=== PATIENT | female | born 1935 | race Caucasian/White ===

== ENCOUNTER → 2017-02-25 | Outpatient (CLI) | payer OTHER ==
[~2017-02-25] MED LIST: REGADENOSON 0.4 MG/5 ML DISP.SYRIN. IV ONE
--- NOTE | 2017-02-25 13:05 | PCVCIMAG ---
APPROVED REPORT Study performed: 02/25/2017 08:39:16 EXAM: Comprehensive 2D, Doppler, and color-flow Echocardiogram Patient Location: Echo lab Room #: 3Status: routine BSA: 1.66 HR: 47 bpmBP: 140/72 mmHg Rhythm: Bradycardia Other Information Study Quality: Adequate Risk Factors: Cardiac Risk Factors: HTN Indications Arrhythmia Bradycardia Dyspnea 2D Dimensions LVEF(%): 54.02 (>50%) IVSd: 9.50 (7-11mm)LVOT Diam: 19.48 (18-24mm) LVDd: 41.41 mm PWd: 10.20 (7-11mm)Ascending Ao: 28.49 (22-36mm) LVDs: 29.98 (25-40mm) Left Atrium: 27.94 (27-40mm) Aortic Root: 23.40 mm LV Single Plane 4CH: 46.14 % LV Single Plane 2CH: 55.96 %Diaz's LVEF: 51.05 % Volumes Left Atrial Volume (Systole) Single Plane 4CH: 38.56 mLSingle Plane 2CH: 36.14 mL Biplane LA Volume: 42.00 mLLA ESV Index: 26.00 mL/m2 Aortic Valve AoV Peak Luisito.: 1.12 m/s AO Peak Gr.: 5.39 mmHgLVOT Max P.35 mmHg LVOT Max V: 0.77 m/s MARII Vmax: 2.04 cm2 Mitral Valve E/A Ratio: 0.6 MV Decel. Time: 253.01 ms MV E Max Luisito.: 0.53 m/s MV A Luisito.: 0.86 m/s MV PHT: 73.37 ms IVRT: 121.11 ms TDI E/Lateral E': 6.63E/Medial E': 10.60 Medial E' Luisito.: 0.05 m/s Lateral E' Luisito.: 0.08 m/s Pulmonary Valve PV Peak Luisito.: 0.54 m/sPV Peak Gr.: 1.16 mmHg Pulmonary Vein P Vein S: 0.43 m/sP Vein A: 0.49 m/s P Vein D: 0.34 m/sP Vein A Dur.: 121.1 msec P Vein S/D Ratio: 1.26 Tricuspid Valve TR Peak Luisito.: 2.36 m/s TR Peak Gr.: 22.32 mmHg TV Vmax: 0.53 m/sPA Pressure: 29.00 mmHg Left Ventricle The left ventricle is normal size. There is normal LV segmental wall motion. There is normal left ventricular wall thickness. Left ventricular systolic function is normal. The left ventricular ejection fraction is within the normal range. LVEF is 55-60%. Grade I - abnormal relaxation pattern. Right Ventricle The right ventricle is normal size. The right ventricular systolic function is normal. Atria The left atrium size is normal. Right atrium is severely dilated. Aortic Valve The aortic valve is normal in structure. No aortic regurgitation is present. There is no aortic valvular stenosis. Mitral Valve The mitral valve is mildly thickened but opens well. Mild mitral regurgitation. No evidence of mitral valve stenosis. Tricuspid Valve The tricuspid valve is normal in structure. Moderate to severe tricuspid regurgitation. Pulmonic Valve The pulmonary valve is normal in structure. There is no pulmonic valvular regurgitation. Great Vessels The aortic root is normal in size. The ascending aorta is normal in size. IVC is normal in size and collapses with >50% inspiration Pericardium There is no pericardial effusion. There is no pleural effusion. <Conclusion> The left ventricle is normal size. LVEF is 55-60%. The aortic valve is normal in structure. The mitral valve is mildly thickened but opens well. Mild mitral regurgitation. The tricuspid valve is normal in structure. Moderate to severe tricuspid regurgitation. There is no pericardial effusion. There is no pleural effusion. The pulmonary valve is normal in structure.
--- NOTE | 2017-02-25 18:21 | PCVCIMAG ---
APPROVED REPORT Exam: Nuclear Stress Test Indication: Dyspnea on exertion Stress Nurse: Judy Smyth RN [place] Tech:Jessica DoshiDEEDEE aguilar Ht: 5 ft 2 in Wt: 143 lbs BSA: 1.66 m2 HR: 43 bpm BP: 170/86 mmHg BMI: 26.1 Rhythm: SB, First degree AV Block Medical History Medical History: HTN, Age Medications: Tekturna, bisoprolol (held 24h), furosemide held this am Allergies: Amlodipine, arbinoxa, clonidine, hydralazine Pretest Chest Pain Characteristics: No chest pain Exercise History: Sedentary NM EXAM: Myocardial Perfusion REST/STRESS Imaging Protocol: Rest Tc-99m/Stress Tc-99m 1 day Resting Data Rest SPECT myocardial perfusion imaging was performed in supine position 45 minutes following the intravenous injection of 10.1 mCi of Tc-99m Sestamibi. Time of rest injection: 1000 Date: 02/25/2017 Administration Route: IV Administration Site: Right AC Pharmacologic Stress Pharmacologic stress test was performed by injecting Regadenoson 0.4 mg IV push followed by the intravenous injection of 31.8 mCi of Tc-99m Sestamibi. Time of stress injection: 1120 Date: 02/25/2017 Administration Route: IV Administration Site: Right AC Gated Stress SPECT was performed 45 minutes after stress injection. The images were gated to evaluate regional wall motion and calculate left ventricular ejection fraction. Study Data Post stress, the left ventricular ejection was 64%.. SSS: 2 SRS: 0 SDS: 2 TID = 1.04. Perfusion There is a medium area of moderately reduced uptake in the apical segment of the anterior and inferior wall which is seen on the stress images and improves on the resting images. This area thickens and moves normally and is most consistent with attenuation artifact vs small region of ischemia. Nuclear Conclusion 1. INTERMEDIATE RISK STUDY Interpreted by: Kaleb Lang MD Electronically Approved: 02/25/2017 18:19:45 Stress Test Details Stress Test: Pharmacologic stress testing performed using 0.4 mg of regadenoson per 5 mL given IV over 10 seconds. Reason for pharmacologic stress test: physical limitation. HR Resting HR: 43 bpmMax Heart Rate (APMHR): 139 bpm Max HR Achieved: 84 bpmTarget HR (85% APMHR): 118 bpm % of APMHR: 60 Recovery HR: 68 bpm BP Resting BP: 170/86 mmHg Max BP: 178/84 mmHg ECG Resting ECG: SB/SA with 1st degree AVB & PVCs Stress ECG: Accelerated junctional Recovery ECG: SR with 1st degree AVB & PVCs Clinical Reason for Termination: Completed protocol Stress Symptoms: Dyspnea Exercise duration: 0 min 55 sec Symptoms resolved during recovery. Nurse Comments Notified Dr. Lang's RN Monica regarding EKG changes during the test. Stress ECG Conclusion 1. ADEQUATE RESPONSE TO IV LEXISCAN 2. INADEQUATE HEART RATE FOR ECG DIAGNOSIS <Conclusion> 1. ADEQUATE RESPONSE TO IV LEXISCAN 2. INADEQUATE HEART RATE FOR ECG DIAGNOSIS
== END | disposition home or self-care (01) ==
LOC: PCVCIMAG 08:23
PROVIDERS: ATTEND Internal Medicine
DX: I08.1 Rheumatic disorders of both mitral and tricuspid valves (principal); I10 Essential (primary) hypertension; I25.10 Atherosclerotic heart disease of native coronary artery without angina pectoris; R94.31 Abnormal electrocardiogram [ECG] [EKG]; I44.0 Atrioventricular block, first degree; I49.3 Ventricular premature depolarization; K21.9 Gastro-esophageal reflux disease without esophagitis
CPT/HCPCS: 78452; 93017; 93306; A9500; J2785